=== PATIENT | male | born 1990 | race American Indian/Alaskan Native ===

== ENCOUNTER 2025-04-20 18:20 | Emergency (ER) | payer OTHER ==
[~2025-04-20] VITALS: Ht 177.8 cm; Wt 81.6 kg
[2025-04-20 19:54] LABS: BASO % 1.1 % (0.1-1.2); EOS # 0.41 (0.04-0.54); EOS % 5.7 % (0.7-7.0); HEMATOCRIT 43.5 % (40.1-51.0); HEMOGLOBIN 14.7 g/dL (13.7-17.5); LYMPH % 30.5 % (19.3-53.1); MEAN CORPUSCULAR HEMOGLOBIN 28.9 pg (25.6-32.2); MONO # 0.56 (0.24-0.82); MONO % 7.8 % (4.7-12.5); NEUT # 3.96 (1.56-6.13); NEUT % 54.8 % (34.0-71.1); PLATELET COUNT 201 K/uL (163-369); RED BLOOD COUNT 5.08 M/uL (4.63-6.08); RED CELL DISTRIBUTION WIDTH 12.4 % (11.6-14.4)
[2025-04-20 20:10] LABS: URINE APPEARANCE Clear; URINE BILIRRUBIN Negative (NEGATIVE); URINE BLOOD Trace; URINE COLOR Yellow; URINE GLUCOSE Negative (NEGATIVE); URINE KETONE Negative (NEGATIVE); URINE LEUKOCYTE Negative; URINE NITRATE Negative; URINE PROTEIN Negative (NEGATIVE); URINE UROBILINOGEN 0.2 E.U./dl
[2025-04-20 20:16] LABS: URINE BACTERIA 1.2 uL (0.0-1933); URINE WBC 1.4 uL (0.0-23.2)
[2025-04-20 20:33] LABS: ALBUMIN 4.2 gm/dL (3.4-5.0); BILIRUBIN TOTAL 0.33 mg/dL (0.3-1.2); CALCIUM 8.8 mg/dL (8.5-10.1); CREATININE SERUM 0.97 mg/dL (0.70-1.30); GFR 89.69; GLOBULINA 3.4 G/DL (2.4-3.5); POTASSIUM 4.15 mEq/L (3.5-5.1); PROSTATIC SPECIFIC ANTIGEN 0.632 NG/ML (0.010-4.00); TOTAL PROTEIN 7.6 gm/dL (6.4-8.2)
== END 2025-04-20 22:37 ==
LOC: ER 18:20
PROVIDERS: General Practice
DX: R35.0 Frequency of micturition (principal)